=== PATIENT | male | born 1940 | race Caucasian/White ===

== ENCOUNTER 2017-04-18 18:31 | Observation (INO) | payer BC, MEDICARE ==
[2017-04-18 18:52] LABS: BASOPHILS 0.3 % (0.0-2.0); EOSINOPHILS 0.6 % (0.0-6.0); EOSINOPHILS# 0.1 X 10^3uL (0.0-0.4); HEMATOCRIT 44.2 % (42.0-54.0); HEMOGLOBIN 15.3 g/dL (14.0-18.0); LYMPHOCYTES 12.2 % (20.0-40.0); LYMPHOCYTES# 1.6 X 10^3uL (0.8-3.8); MEAN CELL VOLUME 91.9 fL (80.0-100.0); MEAN CORPUS. HGB CONCENTRATION 34.5 g/dL (32.0-36.0); MEAN CORPUSCULAR HEMOGLOBIN 31.7 pg (29.0-35.0); MEAN PLATELET VOLUME 10.3 fL (7.4-10.4); MONOCYTES 5.9 % (2.0-10.0); MONOCYTES# 0.8 X 10^3uL (0.2-1.0); NEUTROPHILS# 10.4 X 10^3uL (2.6-6.7); PLATELET COUNT 147 X 10^3uL (130-440); RED BLOOD COUNT 4.81 X 10^6uL (4.20-6.10); RED CELL DISTRIBUTION WIDTH 12.7 % (11.5-14.5); WHITE BLOOD COUNT 12.9 X 10^3uL (3.9-10.7)
[2017-04-18 19:01] LABS: ALKALINE PHOSPHATASE 59 U/L (38-126); AST 32 U/L (17-59); BLOOD UREA NITROGEN 29 mg/dL (9-20); CALCIUM 9.6 mg/dL (8.4-10.2); CHLORIDE 107 mmol/L (98-107); EST GLOMERULAR FILTRATION RATE 53 mL/min; GLUCOSE 114 mg/dL (70-100); LIPASE 97 U/L (23-300); POTASSIUM 4.1 mmol/L (3.5-5.1); SODIUM 146 mmol/L (137-145)
[2017-04-18 19:02] LABS: ETHYL ALCOHOL < 10 mg/dL (<10)
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
[2017-04-18] MEDS ORDERED: KETOROLAC TROMETHAMINE 30 MG/ML VIAL ONE (20:01)
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
[2017-04-18] MEDS ORDERED: HOME MEDICATION LIST NEEDED 1 EA EACH MISC ONE (21:09)
[2017-04-18] MEDS ORDERED: POLYETHYLENE GLYCOL 3350 17 GM POWD.PACK PO PRN (21:09)
[2017-04-18] MEDS ORDERED: MAG-AL PLUS XS SUSP 30 ML UDC PO PRN (21:09)
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
[2017-04-19] MEDS: ACETAMINOPHEN 325 MG TABLET PO PRN ×2 (05:18→14:29)
[2017-04-19 06:30] LABS: BASOPHILS 0.6 % (0.0-2.0); EOSINOPHILS 0.7 % (0.0-6.0); EOSINOPHILS# 0.1 X 10^3uL (0.0-0.4); HEMATOCRIT 38.7 % (42.0-54.0); HEMOGLOBIN 13.1 g/dL (14.0-18.0); LYMPHOCYTES 23.3 % (20.0-40.0); LYMPHOCYTES# 1.9 X 10^3uL (0.8-3.8); MEAN CELL VOLUME 91.4 fL (80.0-100.0); MEAN CORPUS. HGB CONCENTRATION 33.9 g/dL (32.0-36.0); MEAN PLATELET VOLUME 10.9 fL (7.4-10.4); MONOCYTES 10.2 % (2.0-10.0); MONOCYTES# 0.8 X 10^3uL (0.2-1.0); NEUTROPHILS 65.2 % (54.0-75.0); NEUTROPHILS# 5.5 X 10^3uL (2.6-6.7); RED BLOOD COUNT 4.24 X 10^6uL (4.20-6.10); RED CELL DISTRIBUTION WIDTH 12.8 % (11.5-14.5); WHITE BLOOD COUNT 8.3 X 10^3uL (3.9-10.7)
[2017-04-19 06:57] LABS: ALBUMIN 3.6 g/dL (3.5-5.0); BILIRUBIN, DIRECT 0.2 mg/dL (0.0-0.4); TOTAL PROTEIN 6.6 g/dL (6.3-8.2)
[2017-04-19] MEDS ORDERED: ONDANSETRON HCL 4 MG/2 ML VIAL ONE (08:49)
[2017-04-19] MEDS ORDERED: [UNRECOGNIZED DRUG - REMARK] PO SCH (10:15)
[2017-04-19] MEDS: LIDOCAINE 5% 1 PATCH PATCH TRANSDERM SCH (11:19)
[2017-04-19] MEDS: traMADol HCL 50 MG TABLET PO SCH ×3 (11:19→22:45)
[2017-04-19] MEDS: DIPH,PERTUSS(ACELL),TET VAC/PF 0.5 ML VIAL IM ONE ×2 (13:00→14:28)
[2017-04-19] MEDS: [UNRECOGNIZED DRUG - REMARK] PO SCH ×2 (13:25→20:46)
[2017-04-19] MEDS ORDERED: ACETAMINOPHEN 325 MG TABLET PO ONE (14:34)
[2017-04-19] MEDS ORDERED: DIPH,PERTUSS(ACELL),TET VAC/PF 0.5 ML VIAL IM ONE (14:34)
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
[2017-04-19] MEDS: ONDANSETRON HCL 4 MG/2 ML VIAL IV PRN (19:15)
[2017-04-19] MEDS ORDERED: traZODone HCL 50 MG TABLET PO SCH ×2 (21:00)
[2017-04-19] MEDS ORDERED: REMOVE PATCH 1 PATCH PATCH TRANSDERM SCH (21:00)
[2017-04-19] MEDS ORDERED: ATORVASTATIN CALCIUIM 40 MG TABLET PO SCH (21:00)
[2017-04-19 23:48] VITALS: RESP 14
[2017-04-20] MEDS: ACETAMINOPHEN 325 MG TABLET PO PRN (03:30)
[2017-04-20] MEDS: ONDANSETRON HCL 4 MG/2 ML VIAL IV PRN (04:24)
[2017-04-20] MEDS: traMADol HCL 50 MG TABLET PO SCH (05:07)
[2017-04-20] MEDS ORDERED: traMADol HCL 50 MG TABLET PO ONE ×2 (05:18→05:21)
[2017-04-20 06:42] VITALS: BP 116/67; PULSE 79; TEMP 97.9; O2SAT 91
[2017-04-20] MEDS: LIDOCAINE 5% 1 PATCH PATCH TRANSDERM SCH (08:59)
[2017-04-20] MEDS ORDERED: VITAMIN B COMPLEX 1 TABLET PO SCH (09:00)
[2017-04-20] MEDS: [UNRECOGNIZED DRUG - REMARK] PO SCH (09:00)
[2017-04-20] MEDS ORDERED: MULTIVITAMINS THERAPEUTIC 1 TABLET PO SCH (09:00)
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
== END 2017-04-20 08:58 | disposition home or self-care (01) ==
LOC: ER 18:31 → IN 21:27
PROVIDERS: ADMIT Family Medicine; ATTEND Family Medicine
DX: S22.050A Wedge compression fracture of T5-T6 vertebra, initial encounter for closed fracture (principal); V28.4XXA Motorcycle driver injured in noncollision transport accident in traffic accident, initial encounter
CPT/HCPCS: 36415; 71250; 72125; 80048; 80076; 80320; 82247; 83690; 84075; 84450; 85025; 85610; 96372; 96374; 96375; 96376; 99285; A0425; A0427; G0378; G0390; G8978; G8979; J1170; J1885; J2405